=== PATIENT | female | born 1985 ===

== ENCOUNTER 2016-11-17 20:50 | Observation (INO) | payer OTHER ==
[2016-11-17 20:55] VITALS: BP 126/74; PULSE 111; RESP 18; TEMP 98.1; O2SAT 100
--- NOTE | 2016-11-17 22:16 | ED PDOC ---
HPI: Female Pain Time Seen by Provider: 11/17/16 21:28 Chief Complaint (Nursing): Female Genitourinary Chief Complaint (Provider): Vaginal Spotting/Abdominal Cramping History Per: Patient History/Exam Limitations: no limitations Onset/Duration Of Symptoms: Days (1) Current Symptoms Are (Timing): Still Present Severity: Moderate Additional Complaint(s): Margo Gutierrez is a 30 y/o female, with -2; Para-1 and a history of a C- section, presenting to the ER on 11/17/2016 with complaints of vaginal spotting and abdominal cramps x1 day. Patient states she is currently eight weeks with an L&P in September 2016. Reports presentation began with cramping and vaginal bleeding earlier this evening. After saturation with one patch, she reports pain and bleeding has resolved prior to arrival. Denies any associated fever or vomiting. Past Medical History Reviewed: Historical Data, Nursing Documentation, Vital Signs Vital Signs: Last Vital Signs Temp 98.1 F 11/17/16 20:51 Pulse 111 H 11/17/16 20:51 Resp 18 11/17/16 20:51 BP 126/74 11/17/16 20:51 Pulse Ox 100 11/17/16 20:51 - Medical History PMH: No Chronic Diseases - Surgical History Surgical History: - Family History Family History: States: Unknown Family Hx - Social History Current smoker - smoking cessation education provided: No Alcohol: None Drugs: Denies - Home Medications Home Medications: Ambulatory Orders Medication Instructions Recorded Nitrofurantoin Macrocrystals 100 mg PO BID #14 cap 11/18/16 [Macrobid] - Allergies Allergies/Adverse Reactions: Allergies Allergy/AdvReac Type Severity Reaction Status Date / Time No Known Allergies Allergy Verified 11/17/16 21:38 Review of Systems ROS Statement: Except As Marked, All Systems Reviewed And Found Negative Constitutional: Negative for: Fever Gastrointestinal: Positive for: Abdominal Pain. Negative for: Vomiting Genitourinary Female: Positive for: Vaginal Bleeding Physical Exam - Reviewed Nursing Documentation Reviewed: Yes Vital Signs Reviewed: Yes - Physical Exam Appears: Positive for: Non-toxic, No Acute Distress Head Exam: Positive for: ATRAUMATIC, NORMOCEPHALIC Skin: Positive for: Normal Color, Warm, Dry Eye Exam: Positive for: Normal appearance, EOMI, PERRL Neck: Positive for: Normal, Painless ROM, Supple Cardiovascular/Chest: Positive for: Regular Rate, Rhythm. Negative for: Murmur Respiratory: Positive for: Normal Breath Sounds. Negative for: Respiratory Distress Gastrointestinal/Abdominal: Positive for: Normal Exam, Soft. Negative for: Tenderness, Mass, Distended, Guarding, Rebound Extremity: Positive for: Normal ROM. Negative for: Deformity Neurologic/Psych: Positive for: Alert, Oriented (x3). Negative for: Motor/ Sensory Deficits - Laboratory Results Result Diagrams: 11/17/16 22:00 11/17/16 22:00 - ECG O2 Sat by Pulse Oximetry: 100 (RA) Pulse Ox Interpretation: Normal - CT Scan/US Transvag US Other Rad Studies (CT/US): Interpreted By Me, Read By Radiologist, Radiology Report Reviewed Medical Decision Making Medical Decision Makin:28 Initial Impression: Vaginal bleeding/Abdominal Pain. R/o threatened AB, r/o ectopic Initial Plan: * Type and Screen * Beta-HCG * CMP * CBC w/ differential * Urine Culture * Urinalysis * OB Preg US * ED OBS * Reevaluation Patient will be placed within ED Observation secondary to vaginal bleeding/ abdominal pain. Pending Transvag US results. See Obs note for further updates. Patient has had no bleedings in the ER, is RH positive, and is positive for a UTI. Transvag US Results FINDINGS: Uterus: Measures 10.8 x 6.6 x 8.4 cm. Single intrauterine gestation identified. pole and yolk sac are seen. Estimated gestational age is 7 weeks, 3 days, based on the crown rump length. heart motion visualized, at 165 beats per minute. Note that the anatomy, amniotic fluid volume, and placental position cannot be evaluated at this early gestational age. Right ovary: Could not be visualized. Left ovary: Enlarged in size, measured 4.5 x 3.6 x 3.4 cm, secondary to a cystic lesion measuring 3.8 x 2.7 x 2.6 cm. This lesion appears simple to minimally complex internally. No followup is warranted based on the imaging findings, unless otherwise clinically indicated. Flow seen in the left ovary on color and Doppler imaging, with no evidence of torsion. Cul de sac: No free fluid. IMPRESSION: 7 week, 3 day intrauterine with heart motion. 3.8 cm cystic lesion in the left ovary. Right ovary could not be visualized. See above for remaining findings. 2:30 Upon provider reevaluation patient is feeling better, is medically stable, and requires no further treatment in the ED at this time. Patient will be discharged home with a prescription for antibiotics. Counseling was provided and all questions were answered regarding diagnosis. There is agreement to discharge plan. Return if symptoms persist or worsen. Clinical Impression: Threatened AB Scribe Attestation: Documented by Halle Joyner and Kurt Duron, acting as a scribe for Jon Ghosh MD. All medical record entries made by the Scribe were at my direction and personally dictated by me. I have reviewed the chart and agree that the record accurately reflects my personal performance of the history, physical exam, medical decision making, and the department course for this patient. I have also personally directed, reviewed, and agree with the discharge instructions and disposition. ED OBSERVATION Discharge: Yes Date of observation admission: 11/17/16 Time of observation admission: 21:51 - Observation admission statement Patient is being placed in observation because:: Secondary to ED workup - Goals of Observation Goals of observation are:: Labs, US, re-eval Disposition - Clinical Impression Clinical Impression: Female genitourinary symptoms, Abdominal pain during - Patient ED Disposition Is Patient to be Admitted: No Counseled Patient/Family Regarding: Studies Performed, Diagnosis, Need For Followup - Disposition Disposition: Routine/Home Disposition Time: 23:00 Condition: GOOD
[2016-11-17 22:27] LABS: BASO # 0.1 K/uL (0.0-0.2); BASO % 0.6 % (0.0-2.0); EOS # 0.2 K/uL (0.0-0.7); EOS % 2.8 % (0.0-4.0); HEMATOCRIT 36.1 % (34.0-47.0); LYMPH # 2.9 K/uL (1.0-4.3); LYMPH % 31.9 % (20.0-40.0); MEAN CELL VOLUME 87.1 fl (81.0-99.0); MEAN CORPUSCULAR HGB CONC 33.3 g/dL (33.0-37.0); MEAN PLATELET VOLUME 7.7 fl (7.2-11.7); MONO # 0.8 K/uL (0.0-0.8); MONO % 8.6 % (0.0-10.0); NEUT # 5.1 K/uL (1.8-7.0); NEUT % 56.1 % (50.0-75.0); RED CELL DISTRIBUTION WIDTH 13.5 % (11.5-14.5)
[2016-11-17 22:28] LABS: RBC URINE 4 /hpf (0-3); URINE BACTERIA RARE (<OCC); URINE BILIRUBIN NEGATIVE (NEGATIVE); URINE BLOOD NEGATIVE (NEGATIVE); URINE COLOR YELLOW (YELLOW); URINE GLUCOSE (UA) NEG (Normal); URINE KETONE NEGATIVE (NEGATIVE); URINE LEUKOCYTE ESTERASE SMALL Leu/uL (Negative); URINE PROTEIN 30 mg/dL (NEGATIVE); URINE UROBILINOGEN 0.2-1.0 mg/dL (0.2-1.0); WBC URINE 14 /hpf (0-5)
[2016-11-17 22:33] LABS: ALB/GLOB RATIO 1.2 (1.0-2.1); ALKALINE PHOSPHATASE 62 U/L (38-126); ALT/SGPT 27 U/L (9-52); AST/SGOT 21 U/L (14-36); BILIRUBIN,TOTAL 0.2 mg/dl (0.2-1.3); BLOOD UREA NITROGEN 12 mg/dl (7-17); CALCIUM 9.4 mg/dL (8.4-10.2); CARBON DIOXIDE 24 mmol/L (22-30); CHLORIDE 106 mmol/L (98-107); GFR AFRICAN-AMERICAN > 60; GLUCOSE,RANDOM 93 mg/dL (65-105); POTASSIUM 3.7 MMOL/L (3.6-5.0); SODIUM 143 mmol/l (132-148); TOTAL PROTEIN 6.9 G/DL (6.3-8.2)
--- NOTE | 2016-11-18 01:34 | US ---
EXAM: US First Trimester, Transabdominal US , Transvaginal CLINICAL HISTORY: 30 years old, female; Signs and symptoms; Lmp or gestational age (in weeks): Lmp 09/23/2016; Other: Bleeding sometimes; ; Additional info: TECHNIQUE: Real-time transabdominal and transvaginal obstetrical ultrasound of the maternal pelvis and a first trimester with image documentation. Transvaginal imaging was used for better evaluation of the fetus and adnexa. EXAM DATE/TIME: 11/17/2016 9:52 PM COMPARISON: No relevant prior studies available. FINDINGS: Uterus: Measures 10.8 x 6.6 x 8.4 cm. Single intrauterine gestation identified. pole and yolk sac are seen. Estimated gestational age is 7 weeks, 3 days, based on the crown rump length. heart motion visualized, at 165 beats per minute. Note that the anatomy, amniotic fluid volume, and placental position cannot be evaluated at this early gestational age. Right ovary: Could not be visualized. Left ovary: Enlarged in size, measured 4.5 x 3.6 x 3.4 cm, secondary to a cystic lesion measuring 3.8 x 2.7 x 2.6 cm. This lesion appears simple to minimally complex internally. No followup is warranted based on the imaging findings, unless otherwise clinically indicated. Flow seen in the left ovary on color and Doppler imaging, with no evidence of torsion. Cul de sac: No free fluid. IMPRESSION: 7 week, 3 day intrauterine with heart motion. 3.8 cm cystic lesion in the left ovary. Right ovary could not be visualized. See above for remaining findings.
== END 2016-11-18 02:24 | disposition home or self-care (01) ==
LOC: H.ER 20:50 → H.EROBSV 21:51
PROVIDERS: ADMIT Emergency Medicine; ATTEND Emergency Medicine
DX: O26.91 Pregnancy related conditions, unspecified, first trimester (principal); R10.2 Pelvic and perineal pain

== ENCOUNTER 2017-01-17 22:07 | Emergency (ER) | payer OTHER ==
[2017-01-17 22:26] VITALS: BP 121/67; PULSE 99; RESP 16; TEMP 98.7; O2SAT 100
[2017-01-17 22:50] LABS: BASO # 0.1 K/uL (0.0-0.2); BASO % 0.8 % (0.0-2.0); EOS # 0.3 K/uL (0.0-0.7); EOS % 3.4 % (0.0-4.0); HEMATOCRIT 36.5 % (34.0-47.0); LYMPH # 2.9 K/uL (1.0-4.3); LYMPH % 30.5 % (20.0-40.0); MEAN CORPUSCULAR HEMOGLOBIN 29.4 pg (27.0-31.0); MEAN CORPUSCULAR HGB CONC 33.4 g/dL (33.0-37.0); MEAN PLATELET VOLUME 7.6 fl (7.2-11.7); MONO # 0.7 K/uL (0.0-0.8); MONO % 7.5 % (0.0-10.0); NEUT # 5.5 K/uL (1.8-7.0); NEUT % 57.8 % (50.0-75.0); NRBC % 0.1 % (0.0-0.0); RED CELL DISTRIBUTION WIDTH 14.2 % (11.5-14.5); WHITE BLOOD COUNT 9.6 K/uL (4.8-10.8)
[2017-01-17 22:55] LABS: RBC URINE 5 /hpf (0-3); URINE BACTERIA RARE (<OCC); URINE BILIRUBIN NEGATIVE (NEGATIVE); URINE BLOOD NEGATIVE (NEGATIVE); URINE COLOR YELLOW (YELLOW); URINE GLUCOSE (UA) NEG (Normal); URINE KETONE NEGATIVE (NEGATIVE); URINE LEUKOCYTE ESTERASE SMALL Leu/uL (Negative); URINE PROTEIN NEGATIVE (NEGATIVE); URINE UROBILINOGEN 0.2-1.0 mg/dL (0.2-1.0); WBC URINE 9 /hpf (0-5)
--- NOTE | 2017-01-17 23:19 | ED PDOC ---
HPI: Abdomen Time Seen by Provider: 01/17/17 22:30 Chief Complaint (Nursing): Abdominal Pain Chief Complaint (Provider): abdominal pain History Per: Patient History/Exam Limitations: no limitations Onset/Duration Of Symptoms: Days (1 week ) Outside of [place] travel?: No Current Symptoms Are (Timing): Still Present Additional Complaint(s): 31yo female currently EGA 16 weeks with no PMHx presents to the ED with c/ o abdominal pain x 1 week. Patient states pain is menstrual cramping like with no associated vaginal bleeding, urinary symptoms, n/v/d, constipation. Pain is 5 /10. Patient has not taken anything for pain and has not seen her network support analyst Dr. Duke since pain started. : 2 Para: 1 Past Medical History Reviewed: Historical Data, Nursing Documentation, Vital Signs Vital Signs: Last Vital Signs Temp 98.7 F 01/17/17 22:25 Pulse 99 H 01/17/17 22:25 Resp 16 01/17/17 22:25 BP 121/67 01/17/17 22:25 Pulse Ox 100 01/18/17 01:18 - Medical History PMH: No Chronic Diseases - Surgical History Surgical History: - Family History Family History: States: No Known Family Hx - Social History Current smoker - smoking cessation education provided: No Alcohol: None Drugs: Denies - Home Medications Home Medications: Ambulatory Orders Medication Instructions Recorded Nitrofurantoin Macrocrystals 100 mg PO BID #14 cap 11/18/16 [Macrobid] Nitrofurantoin Macrocrystals 100 mg PO BID #14 cap 01/18/17 [Macrobid] - Allergies Allergies/Adverse Reactions: Allergies Allergy/AdvReac Type Severity Reaction Status Date / Time No Known Allergies Allergy Verified 11/17/16 21:38 Review of Systems ROS Statement: Except As Marked, All Systems Reviewed And Found Negative Gastrointestinal: Positive for: Abdominal Pain. Negative for: Nausea, Vomiting , Diarrhea, Constipation Genitourinary Female: Negative for: Dysuria, Frequency, Incontinence, Hematuria , Vaginal Bleeding Physical Exam - Reviewed Nursing Documentation Reviewed: Yes Vital Signs Reviewed: Yes - Physical Exam Appears: Positive for: Well, No Acute Distress Head Exam: Positive for: ATRAUMATIC, NORMAL INSPECTION, NORMOCEPHALIC Skin: Positive for: Normal Color, Warm, Dry Eye Exam: Positive for: Normal appearance, EOMI, PERRL ENT: Positive for: Normal ENT Inspection Neck: Positive for: Normal, Painless ROM, Supple Cardiovascular/Chest: Positive for: Regular Rate, Rhythm. Negative for: Murmur , Tachycardia Respiratory: Positive for: Normal Breath Sounds. Negative for: Wheezing, Respiratory Distress Gastrointestinal/Abdominal: Positive for: Soft, Tenderness (suprapubic ). Negative for: Guarding, Rebound Back: Positive for: Normal Inspection. Negative for: L CVA Tenderness, R CVA Tenderness Extremity: Positive for: Normal ROM. Negative for: Deformity, Swelling Neurologic/Psych: Positive for: Alert, Oriented. Negative for: Motor/Sensory Deficits - Laboratory Results Result Diagrams: 01/17/17 22:37 - ECG O2 Sat by Pulse Oximetry: 100 Pulse Ox Interpretation: Normal (RA) Medical Decision Making Medical Decision Makin: Impression: 31yo female w/ abdominal pain in setting of second trimester Plan: Beta-HCG, CBC, urine dip, UA Tylenol 650mg PO US OB reassess 0105: US OB impression: 1. Single live intrauterine gestation. 2. Low-lying placenta. 0128: Labs reviewed, show no clinically significant abnormalities with exception of urine indicative of UTI. Spoke with Dr. Wilkinson who agrees that patient is stable for discharge and should follow-up with him outpatient. Dx: UTI, abdominal pain during Rx: macrobid F/U w/ Dr. Wilkinson in 2 days Scribe Attestation: Documented by Kade Andujar acting as a scribe for Heriberto Cline MD. Provider Scribe Attestation: All medical record entries made by the Scribe were at my direction and personally dictated by me. I have reviewed the chart and agree that the record accurately reflects my personal performance of the history, physical exam, medical decision making, and the department course for this patient. I have also personally directed, reviewed, and agree with the discharge instructions and disposition. Disposition - Clinical Impression Clinical Impression: Abdominal pain during , Urinary tract infection - Patient ED Disposition Is Patient to be Admitted: No Counseled Patient/Family Regarding: Studies Performed, Diagnosis, Need For Followup, Rx Given - Disposition Disposition: Routine/Home Disposition Time: 01:28 Condition: STABLE Prescriptions: Nitrofurantoin Macrocrystals [Macrobid] 100 mg PO BID #14 cap Instructions: Abdominal Pain in (ED) Print Language: MALIAN
--- NOTE | 2017-01-18 14:18 | US ---
PROCEDURE: Limited ultrasound HISTORY: abd pain preg COMPARISON: 11/18/2016.. TECHNIQUE: Standard protocol for this study/examination. FINDINGS: Cephalic presentation. Fundal extending to the right of the midline, low lying within 2.7 cm of the cervical os. No evidence of abruption. Gestational age derived from LMP 16 weeks 3 days Gestational age derived from the following biometric parameters 16 weeks 680s . Biparietal diameter 3.57 cm Head [id number] cm Abdominal circumference 11.13 cm Femur length 2.22 cm Estimated weight 170.1 g Calculated cardiac rate 166 beats per min. Closed cervix measuring 4.32 cm MAYKEL based on LMP: 07/01/2017, MAYKEL based on biometry: 06/29/2017. IMPRESSION: 16 weeks 6 days live intrauterine gestation. Adequate interval progression compared to the prior study. Scratch
== END 2017-01-18 01:46 | disposition home or self-care (01) ==
LOC: H.ER 22:07
DX: O23.40 Unspecified infection of urinary tract in pregnancy, unspecified trimester (principal)

== ENCOUNTER 2017-03-22 10:20 | Emergency (ER) | payer OTHER ==
[2017-03-22 10:56] VITALS: RESP 18; TEMP 98; O2SAT 100
--- NOTE | 2017-03-22 12:07 | ED PDOC ---
HPI: Headache Time Seen by Provider: 03/22/17 10:33 Chief Complaint (Nursing): Headache Chief Complaint (Provider): Headache History Per: Patient History/Exam Limitations: no limitations Onset/Duration Of Symptoms: Days (x 3 ) Current Symptoms Are (Timing): Still Present Additional Complaint(s): Margo is a 31 y/o female who presents to the ED complaining of a headache since night, bilaterally. Patient is 24 weeks . Denies any associated neck stiffness, photophobia, or vision changes. Also complaining of lower abdominal pain on exam. PMD: Rodriguez Wilkinson - Risk Factors SAH Risk Factors: Nest Degree Relative(s) W/SAH, Sudden Onset Of Pain, Worst Headache Of Life Past Medical History Reviewed: Historical Data, Nursing Documentation, Vital Signs Vital Signs: Last Vital Signs Temp 98.0 F 03/22/17 10:53 Pulse 101 H 03/22/17 10:53 Resp 18 03/22/17 10:53 BP 117/64 03/22/17 10:53 Pulse Ox 100 03/22/17 10:53 - Surgical History Surgical History: - Family History Family History: States: Unknown Family Hx - Social History Current smoker - smoking cessation education provided: No Alcohol: None Drugs: Denies - Home Medications Home Medications: Ambulatory Orders Medication Instructions Recorded Nitrofurantoin Macrocrystals 100 mg PO BID #14 cap 11/18/16 [Macrobid] Nitrofurantoin Macrocrystals 100 mg PO BID #14 cap 01/18/17 [Macrobid] - Allergies Allergies/Adverse Reactions: Allergies Allergy/AdvReac Type Severity Reaction Status Date / Time No Known Allergies Allergy Verified 11/17/16 21:38 Review of Systems ROS Statement: Except As Marked, All Systems Reviewed And Found Negative Eyes: Negative for: Vision Change, Other (photophobia) ENT: Negative for: Other (neck stiffness) Gastrointestinal: Positive for: Abdominal Pain (lower abdominal pain) Neurological: Positive for: Headache Physical Exam - Reviewed Nursing Documentation Reviewed: Yes Vital Signs Reviewed: Yes - Physical Exam Appears: Positive for: Non-toxic, No Acute Distress Head Exam: Positive for: ATRAUMATIC, NORMAL INSPECTION, NORMOCEPHALIC Skin: Positive for: Normal Color, Warm, Dry Eye Exam: Positive for: EOMI, Normal appearance, PERRL Neck: Positive for: Normal, Painless ROM, Supple Cardiovascular/Chest: Positive for: Regular Rate, Rhythm. Negative for: Murmur Respiratory: Positive for: Normal Breath Sounds. Negative for: Accessory Muscle Use, Respiratory Distress Gastrointestinal/Abdominal: Positive for: Soft, Other (Gravid uterus but no tenderness) Back: Positive for: Normal Inspection. Negative for: Vertebral Tenderness Extremity: Positive for: Normal ROM. Negative for: Pedal Edema, Deformity Neurologic/Psych: Positive for: Alert, Oriented. Negative for: Motor/Sensory Deficits - ECG O2 Sat by Pulse Oximetry: 100 (RA) Pulse Ox Interpretation: Normal Medical Decision Making Medical Decision Making: Time: 11:02 Initial Impression: Headache Initial Plan: --Tylenol 650 mg PO --Pending reevaluation Clinical Impression: Headache Upon provider reevaluation patient is feeling better, medically stable, and requires no further treatment in the ED at this time. Patient will be discharged with instructions to take Tylenol prn. Patient will be sent upstairs to see OB. Counseling was provided and all questions were answered regarding diagnosis and need for follow up with PMD. There is agreement to discharge plan. Return if symptoms persist or worsen. Scribe Attestation: Documented by Franchesca Martinez, acting as a scribe for Marisel Lares MD Provider Scribe Attestation: All medical record entries made by the Scribe were at my direction and personally dictated by me. I have reviewed the chart and agree that the record accurately reflects my personal performance of the history, physical exam, medical decision making, and the department course for this patient. I have also personally directed, reviewed, and agree with the discharge instructions and disposition. Disposition - Clinical Impression Clinical Impression: Headache - Patient ED Disposition Is Patient to be Admitted: No Counseled Patient/Family Regarding: Diagnosis, Need For Followup - Disposition Referrals: Rodriguez Wilkinson MD [Staff Provider] - Disposition: Routine/Home Disposition Time: 12:03 Condition: IMPROVED Additional Instructions: TAKE TYLENOL NEEDED FOR PAIN. Instructions: General Headache (ED) Forms: [facility] (Belarusian)
--- NOTE | 2017-03-22 15:18 | OBHP ---
Datetime: 03/22/2017 13:37 IP Adm Impression: , intrauterine IP Admit Plan: Observation/Evaluation Admit Comment, IP Provider: 31yo edc 07/02 by 1st trim us presented to ED with c/o H/ax3 days. States is bitemporal, initially 10/10 but today has been 7/10. She denies sctomata, blurred va, h/o migraines. h/a relieved with bitemporal massage. c/o suprapubic pain today. denies ctxs, coitus, va g bleeding. current preg sig for uti, otherwise noncomplicated pmhx:denies pshx: cd obhx: cd for nonreassuring status @ 39wks medic: pnv nka shx: denies etoh, drugs or tobacco i: 26.6wk h/a -most likely tension suprapubic pain may be 2ndary to preg h/o uti p: u/a pt d/w dr paul Pelvic Type - PN: Adequate Extremities - PN: Normal Abdomen - PN: Normal Lungs - PN: Normal Heart - PN: Normal Neurologic - PN: Normal HEENT - PN: Normal General - PN: Normal FHR - Baseline A Provider: 160 Membranes, Provider: Intact EGA AdmitDate IP: 25.3 Vital Signs Provider: Within Normal Limits IP Chief Complaint: Other NICHD Variability Prov Fetus A: Moderate 6-25bpm NICHD Accel Fetus A IP Provider: [id number] FHR Category Provider Fetus A: Category I NICHD Decel Fetus A IP Provider: None Dilatation, Provider: 0 Effacement, Provider: 0 Station, Provider: -4 Genitourinary Exam: Normal
[2017-03-22 15:25] LABS: SQUAMOUS EPITHIAL 1 /hpf (0-5); URINE BILIRUBIN NEGATIVE (NEGATIVE); URINE BLOOD NEGATIVE (NEGATIVE); URINE CLARITY SLIGHTY-CLOUDY (Clear); URINE COLOR YELLOW (YELLOW); URINE GLUCOSE (UA) NEG (Normal); URINE LEUKOCYTE ESTERASE NEG Leu/uL (Negative); URINE NITRATE NEGATIVE (NEGATIVE); URINE PROTEIN NEGATIVE (NEGATIVE); URINE UROBILINOGEN 0.2-1.0 mg/dL (0.2-1.0)
[2017-03-22 19:53] VITALS: BP 109/70; PULSE 95
== END 2017-03-22 15:39 | disposition home or self-care (01) ==
LOC: H.ER 10:20 → H.EROB2 10:20 → H.ER 12:21 → H.EROB 12:32 → H.EROB2 15:39
DX: O26.92 Pregnancy related conditions, unspecified, second trimester (principal); R51 Headache; Z3A.35 35 weeks gestation of pregnancy

== ENCOUNTER 2017-06-23 16:32 | Emergency (ER) | payer MEDICAID ==
--- NOTE | 2017-06-23 17:53 | OBDCSUM ---
Datetime: 06/23/2017 17:35 Discharged to, Provider: Home Follow up at, Provider: Dr. Calero Disch Instr Activity: Normal activity Disch Instr Diet: Regular Discharge Diagnosis, Provider: False Labor - Undelivered Discharge Time: 06/23/2017 17:45 Follow up in weeks, Provider: 06/30 Disch Referrals: None
--- NOTE | 2017-06-23 17:54 | OBHP ---
Datetime: 06/23/2017 17:40 IP Adm Impression: Term, intrauterine IP Admit Plan: Observation/Evaluation; Discharge home Admit Comment, IP Provider: Patient is a @ 38.5 wks, Previous x 1 with complaints of contractions, no vaginal bleeding, no leaking, +FM. 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 Patient is /-3, FHR = 155 Cat-1 and contraction infrequently. Patient ruled out for labor. Patient desires , discussed with patient morbidity and risks including risk of rupture th at can lead to maternal/ in about 1% of VBACs, as well as risk of hemorrhage, infection an d admission to NICU for a failed . Previous reason for was bradycardia, op report no able to be reviewed. Discussed with patient Repeat date advised to be scheduled at EDC - going into natural labor before EDC increases favorability of a successful delivery. Induction and going past EDC increases likelihood of failure. Patient desired to speak with her primary OB Dr. Giraldo er before making any formal decisions. Labor precautions discussed, patient discharged home, next cli sommer appt is 06/30. All questions answered and patient verbalized understanding of risks discussed Pelvic Type - PN: Adequate Extremities - PN: Normal Abdomen - PN: Normal Back - PN: Normal Breast - PN: Normal Lungs - PN: Normal Heart - PN: Normal Thyroid - PN: Normal Neurologic - PN: Normal HEENT - PN: Normal General - PN: Normal FHR - Baseline A Provider: 155 EGA AdmitDate IP: 38.5 Vital Signs Provider: Reviewed; Within Normal Limits IP Chief Complaint: Uterine contractions NICHD Variability Prov Fetus A: Moderate 6-25bpm NICHD Accel Fetus A IP Provider: [id number] NICHD Decel Fetus A IP Provider: None Dilatation, Provider: 2 Effacement, Provider: 30 Station, Provider: -3 Genitourinary Exam: Normal DTRs - PN: Normal Datetime: 03/22/2017 13:37 Comments, ACOG Physical Exam: addendum: u/a neg
[2017-06-23 23:49] VITALS: BP 110/72; PULSE 114
== END 2017-06-23 17:30 | disposition home or self-care (01) ==
LOC: H.EROB2 16:32
DX: O47.03 False labor before 37 completed weeks of gestation, third trimester (principal); Z3A.36 36 weeks gestation of pregnancy; O26.93 Pregnancy related conditions, unspecified, third trimester; R10.2 Pelvic and perineal pain; Z87.59 Personal history of other complications of pregnancy, childbirth and the puerperium

== ENCOUNTER 2017-06-24 23:41 | Inpatient (IN) | payer MEDICAID ==
[2017-06-25] MEDS ORDERED: AMPicillin 2 GM in Sodium Chloride 0.9% 100 ML IVPB STA (00:25)
[2017-06-25] MEDS ORDERED: Lactated Ringer's 1,000 ML IV SCH (00:30)
[2017-06-25 00:34] VITALS: BMI 34.7
[2017-06-25] MEDS ORDERED: AMPicillin 2 GM in Sodium Chloride 0.9% 100 ML IVPB ONE (00:43)
[2017-06-25] MEDS ORDERED: AMPicillin 1 GM in Sodium Chloride 0.9% 100 ML IVPB SCH (00:45)
[2017-06-25 00:56] LABS: BASO % 0.3 % (0.0-2.0); EOS # 0.1 K/uL (0.0-0.7); EOS % 0.9 % (0.0-4.0); HEMATOCRIT 40.7 % (34.0-47.0); LYMPH # 1.6 K/uL (1.0-4.3); LYMPH % 18.8 % (20.0-40.0); MEAN CELL VOLUME 89.1 fl (81.0-99.0); MEAN CORPUSCULAR HEMOGLOBIN 29.6 pg (27.0-31.0); MEAN CORPUSCULAR HGB CONC 33.3 g/dL (33.0-37.0); MEAN PLATELET VOLUME 8.2 fl (7.2-11.7); MONO # 0.5 K/uL (0.0-0.8); MONO % 6.1 % (0.0-10.0); NEUT # 6.4 K/uL (1.8-7.0); NEUT % 73.9 % (50.0-75.0); WHITE BLOOD COUNT 8.7 K/uL (4.8-10.8)
[2017-06-25] MEDS: Lactated Ringer's 1,000 ML IV SCH ×2 (01:05→03:05)
[2017-06-25] MEDS ORDERED: Oxytocin 30 UNITS in Sodium Chloride 0.9% 500 ML IV SCH (01:15)
[2017-06-25] MEDS ORDERED: Lidocaine 1% Inj (20ml) ONE (01:21)
[2017-06-25 01:29] VITALS: O2SAT 100
[2017-06-25] MEDS ORDERED: Oxycodone/Acetaminophen 5/325 mg Tab PO PRN ×4 (02:08→03:03)
--- NOTE | 2017-06-25 02:15 | OBDS ---
DELIVERY PERSONNEL Delivery Doctor: Panchito Lopez MD Double End Tenoner Setter: Justin Workman AEdrolin Resident: Kingston Downing MATERNAL INFORMATION Delivery Anesthesia: Local Medications in Delivery: Pitocin Estimated Blood Loss (ml): 300 Placenta Cultured: No Maternal Complications: Precipitous Labor (<3hrs) Provider Comments: Baby girl Delivered precipitously at 1:33 am. The baby was bulb suctioned on the maternal chest, the cord was clamped and cut, 3 vessesl noted. Cord blood was obtaine doand sent to t he lab. There was a second degree laceration which was repaired with 2.0 rapide. The moterh tolerated the procedure well baby to well baby nursery with 9/9 weighing 3155g LABOR SUMMARY EDC: 07/02/2017 00:00 No. Babies in Womb: 1 Attempted: Yes Labor Anesthesia: None LABOR INFORMATION Reason for Induction: Not Applicable Onset of Labor: 06/25/2017 00:30 Complete Dilatation: 06/25/2017 01:32 Oxytocin: N/A Group B Beta Strep: Positive Antibiotics # of Doses: 1 Antibiotics Time of Last Dose: 0107 Steroids Given: None Reason Steroids Not Administered: Not Applicable MEMBRANES Membranes Rupture Method: Spontaneous Rupture of Membranes: 06/25/2017 01:33 Length of Rupture (hrs): 0.00 Amniotic Fluid Color: Clear Amniotic Fluid Amount: Small STAGES OF LABOR Stage 1 hrs: 1 Stage 1 min: 2 Stage 2 hrs: 0 Stage 2 min: 1 Stage 3 hrs: 0 Stage 3 min: 6 Total Time in Labor hrs: 1 Total Time in Labor min: 9 VAGINAL DELIVERY Laceration Extension: Second Degree Laceration Type: Perineal Laceration Repair: Yes Initial Vag Sponge Count: 15 Final Vag Sponge Count: 15 Initial Vag Sharps Count: 3 Final Vag Sharps Count: 3 Sponge Count Correct: Yes Sharps Count Correct: Yes Count Comment: count correct BABY A INFORMATION Delivery Date/Time: 06/25/2017 01:33 Method of Delivery: Vaginal Born in Route : No : Successful Forceps: N/A Vacuum Extraction: N/A Shoulder Dystocia : No SHOULDER DYSTOCIA BABY A Infant Delivery Date/Time: 06/25/2017 01:33 PRESENTATION/POSITION BABY A Presentation: Cephalic Cephalic Presentation: Vertex PLACENTA INFORMATION BABY A Placenta Delivery Time : 06/25/2017 01:39 Placenta Method of Delivery: Spontaneous Placenta Status: Delivered SCORES BABY A Heart Rate 1 min: >100 bpm Resp Effort 1 min: Good Cry Reflex Irritability 1 min: Cough or Sneeze or Pulls Away Muscle Tone 1 min: Active Motion Color 1 min: Body [place], Extremities Blue Resuscitation Effort 1 min: Tactile Stimulation SCORE 1 MIN: 9 Heart Rate 5 min: >100 bpm Resp Effort 5 min: Good Cry Reflex Irritability 5 min: Cough or Sneeze or Pulls Away Muscle Tone 5 min: Active Motion Color 5 min: Body [place], Extremities Blue Resuscitation Effort 5 min: N/A SCORE 5 MIN: 9 INFANT INFORMATION BABY A Gestational Age at Delivery: 39.1 Gestational Status: Term Infant Outcome : Liveborn Condition : Stable Infant Sex: Female IDENTIFICATION/MEDS BABY A ID Band Number: [id number] ID Band Location: Left Leg; Left Arm WEIGHT/LENGTH BABY A Infant Birthweight (gms): 3155 Infant Weight (lb): 6 Weight (oz): 15 CORD INFORMATION BABY A No. Cord Vessels: 3 Nuchal Cord : N/A Nuchal Cord Other: n/a True Knot: n/a Infant Cord pH Baby Arterial: n/a Infant Cord pH Baby Venous: n/a Cord Blood Taken: Yes Banking/Donate Info: n/a Suction: None ASSESSMENT BABY A Complications: None Physical Findings at Delivery: Within Normal Limits Respirations: Appears Normal Property Field Adjuster/ALS Called : No Care By: Lenny Transferred To: Remains with Mother
--- NOTE | 2017-06-25 02:17 | OBADHP ---
Datetime: 06/25/2017 00:28 Admit Comment, IP Provider: CC: "CTX" HPI: 31YO @ 39.1wks IUP presents to [facility] for ctx. per pt, her ctx started around 5PM and were initially [id number] but now they have progressed to Q10 mins. Additionally, pt states that she had syed e fecs of blood in mucus discharge around 8PM. Denies LOF, VB, endorses FM and CTX. 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 Gynhx: HPV +, colposcopy post delivery PMH: denies SurgHx: c-sectiom FH: hx of HTN in mother SH: denies smoking, ETOH and illicit drug use Allergies: NKDA Meds: PNV PE Vitals: Stable Cardio: S1S2 no M/G/R Resp: vesicular breathing b/l abdomen: gravid, NT, BS+ neuro: AAO x 3 Ext: no edema, NT FM: 155, with moderate variability-catagory I Cervx: 6/100/-2 bedside u/s: vertex presentation Assessment/Plan: 31YO @ 39.1wks IUP (MAYKEL 07/01) is being admitted to L_D for active labor. GBS +, HIV neg, rpr neg, hep B neg, GC neg. Pt would like epidural. -admit to L_D -IV fluids -start abx -NPO -blood work -continue monitor -consult anesthesiology -will continue to monitor progression of labor Pt discussed with attending Meena Downing, PGY I The patient was seen with the resident I agree with the note Pelvic Type - PN: Adequate Extremities - PN: Normal Abdomen - PN: Normal Back - PN: Not Done Breast - PN: Normal Lungs - PN: Normal Heart - PN: Normal Thyroid - PN: Not Done Neurologic - PN: Normal HEENT - PN: Normal General - PN: Normal FHR - Baseline A Provider: 155 Vital Signs Provider: Reviewed; Within Normal Limits IP Chief Complaint: Uterine contractions NICHD Variability Prov Fetus A: Moderate 6-25bpm NICHD Accel Fetus A IP Provider: [id number] FHR Category Provider Fetus A: Category I Dilatation, Provider: 6 Effacement, Provider: 100 Station, Provider: -2 Genitourinary Exam: Normal DTRs - PN: Not Done EGA AdmitDate IP: 39.0 IP Adm Impression: Term, intrauterine IP Admit Plan: Admit to unit; Initiate labor protocol Datetime: 06/23/2017 17:40 NICHD Decel Fetus A IP Provider: None Datetime: 03/22/2017 13:37 Membranes, Provider: Intact Comments, ACOG Physical Exam: addendum: u/a neg
[2017-06-25 07:52] LABS: BASO # 0.1 K/uL (0.0-0.2); BASO % 0.3 % (0.0-2.0); EOS % 0.1 % (0.0-4.0); HEMATOCRIT 29.4 % (34.0-47.0); LYMPH # 2.2 K/uL (1.0-4.3); LYMPH % 12.7 % (20.0-40.0); MEAN CELL VOLUME 89.5 fl (81.0-99.0); MEAN CORPUSCULAR HEMOGLOBIN 30.4 pg (27.0-31.0); MEAN PLATELET VOLUME 9.2 fl (7.2-11.7); MONO # 1.2 K/uL (0.0-0.8); MONO % 6.9 % (0.0-10.0); NEUT # 14.1 K/uL (1.8-7.0); RED CELL DISTRIBUTION WIDTH 12.9 % (11.5-14.5); WHITE BLOOD COUNT 17.6 K/uL (4.8-10.8)
[2017-06-25] MEDS ORDERED: Influenza Vaccine 18yr & older 0.5 ML/45 MCG SYR IM ONE (08:50)
[2017-06-26] MEDS ORDERED: Benzocaine/Menthol SPRAY TOP PRN (07:08)
--- NOTE | 2017-06-26 10:38 | OBPPN ---
Datetime: 06/26/2017 07:20 PP Pain Prov: Within normal limits PP Nausea Prov: Denies PP Flatus Prov: Yes PP BM Prov: No PP Breasts Prov: Normal PP Heart Prov: Normal PP Lungs Prov: Normal PP Abdomen/Uterus Prov: Normal PP Lochia Prov: Normal PP Vulva/Perineum Prov: Normal PP CVA Tenderness Prov: Not Done PP Extremities Prov: Normal PP C/S Incision Prov: Not Applicable PP Progress Prov: Normal PP Impression Prov: Normal progression PP Plan Prov: Continue present management PP Progress Note Prov: S: pt seen and examined bedside this AM. PPD 1, s/p NVD. No acute overnight e vents. Pain has improved alot per pt and is well controlled with meds. Ambulating w/o any difficultie s. Breast feeding baby. Tolerating PO diet and lochia is minimal, like day 3 of periods (mod-light), voiding without any difficulties. +/- gas, BM. Denies fever, chills, headache, chest pain, dyspnea, p alpitations, n/v/d/c and remains afebrile. O: VS stable GEN: NAD Cardio: S1S2 no M/G/R Resp: vesicular breathing b/l Abdomen: NT on palpation, fundus below the umbilicus and firm. BS+ Neuro: AAO x 3 Ext: no edema noted, no calf tenderness Assessment/Plan: 31 YO delivered @ 39.1wks to a baby girl via NVD on 06/25/17. Doing well PPD1. OOB with caution SCD's for DVT prophylaxis, ambulating Ibuprofen and Percocet 5/325mg 1-2 tablets po q6 for mod/sev pain Encourage and ambulation Senakot 17.2mg PO qHS Will continue PP management Meena Downing, PGY I OB attending addendum: Patient seen and examined by me. complaint of lack of milk production. states she did see lactati on specialist today but she has not seen much results. desires to see lactionist today as well. Nurs e will make sure pt sees renal medicine specialist today Agree with above assessment and plan. Vital Signs Provider PP: Reviewed; Within Normal Limits
--- NOTE | 2017-06-27 11:36 | OBDCSUM ---
Datetime: 06/27/2017 07:20 Discharged to, Provider: Home Follow up at, Provider: [facility] Disch Instr Activity: Normal activity Disch Instr Diet: Regular Discharge Instructions, Provider: Routine instructions given Discharge Diagnosis, Provider: Term Delivered Discharge Time: 06/27/2017 09:00 Disch Referrals: None Contraception discussed, Prov: Yes Disch Activity Restrictions: No exercising; No lifting; Minimize stair-climbing; No sexual activity; Nothing in vagina - [place], tampons, douche Discharge Comment, Provider: 31 YO delivered @ 39.1wks to a baby girl via NVD on 06/25/17. Unco mplicated course. Lochia is minimal, pt is ambulating, tolerating PO diet, and remains afe brile. 1. Encourage 2. PNV 1 tab po q/day 3. Ibuprofen for pain. Senokot for constipation. 4. Ambulatory with caution, nothing per vagina, no heavy lifting, avoid stairs, if excessive bleed ing or fever without relief from Tylenol go to ED 5. F/U at [facility] PP 08/05/17 @ 1:30 Baby 3-4 days Meena Downing, PGY I Contraception after Delivery: Undecided
--- NOTE | 2017-06-27 11:36 | OBPPN ---
Datetime: 06/27/2017 07:17 PP Pain Prov: Within normal limits PP Nausea Prov: Denies PP Flatus Prov: Yes PP BM Prov: No PP Breasts Prov: Normal PP Heart Prov: Normal PP Lungs Prov: Normal PP Abdomen/Uterus Prov: Normal PP Lochia Prov: Normal PP Vulva/Perineum Prov: Normal PP CVA Tenderness Prov: Not Done PP Extremities Prov: Normal PP C/S Incision Prov: Not Applicable PP Progress Prov: Normal PP Impression Prov: Normal progression PP Plan Prov: Continue present management; Discharge PP Progress Note Prov: S: pt seen and examined bedside this AM. PPD 2, s/p NVD. No acute overnight e vents. Pt continues to have tachycardia, but remains asymptomatic. Pain has improved per pt, does not feel the need for meds at this pont. Ambulating w/o any difficulties. B and B feeding baby. Tolerati ng PO diet and lochia is like light menses. Pt feels well and is ready to go home. +/- gas, BM. Denie s fever, chills, headache, chest pain, dyspnea, palpitations, n/v/d/c and remains afebrile. O: VS stable GEN: NAD Cardio: S1S2 no M/G/R Resp: vesicular breathing b/l Abdomen: mild tenderness to palpation. Fundus below the umbilicus and firm. BS+ Neuro: AAO x 3 Ext: no edema noted, no calf tenderness Assessment/Plan: 31 YO delivered @ 39.1wks to a baby girl via NVD on 06/25/17. Doing well PPD2. OOB with caution SCD's for DVT prophylaxis, ambulating Ibuprofen and Percocet 5/325mg 1-2 tablets po q6 for mod/sev pain Encourage and ambulation Senakot 17.2mg PO qHS Will d/c pt with PP follow up Please see MD for baby in 3-4days Meena Downing, PGY I Addendum: I saw and agreed with above I reviewed both note. Findings. Patient stable. Continue present manag ement. Vital Signs Provider PP: Reviewed; Within Normal Limits
[2017-06-27 17:33] VITALS: BP 108/63; PULSE 109; RESP 20; TEMP 99.1
== END 2017-06-27 13:25 | disposition home or self-care (01) | DRG 373 ==
LOC: H.EROB2 23:41 → H.EROB 06-25 00:25 → H.L&D 06-25 00:25 → H.OB/GYN 06-25 03:45
PROVIDERS: ADMIT Obstetrics & Gynecology Gynecology; ATTEND Obstetrics & Gynecology Gynecology
PROC: 10E0XZZ Delivery of Products of Conception, External Approach (ICD-10-PCS; principal; 2017-06-25)
PROC: 0KQM0ZZ Repair Perineum Muscle, Open Approach (ICD-10-PCS; 2017-06-25)
PROC: 4A1HXCZ Monitoring of Products of Conception, Cardiac Rate, External Approach (ICD-10-PCS; 2017-06-25)
DX: O62.3 Precipitate labor (principal); N85.8 Other specified noninflammatory disorders of uterus; Z37.0 Single live birth; O34.219 Maternal care for unspecified type scar from previous cesarean delivery; O70.1 Second degree perineal laceration during delivery; O99.824 Streptococcus B carrier state complicating childbirth; Z3A.39 39 weeks gestation of pregnancy; Z82.49 Family history of ischemic heart disease and other diseases of the circulatory system